=== PATIENT | female | born 1990 | race Caucasian/White ===

== ENCOUNTER 2018-03-09 10:35 | Inpatient (IN) | payer OTHER ==
[~2018-03-09] VITALS: Ht 157.5 cm; Wt 2.3 kg
[2018-03-16] MEDS ORDERED: PRENATAL PLUS1 EAC2 PO (07:27)
== END 2018-03-19 13:58 | DRG 766 ==
LOC: O/R 03-16 07:02 → SURG-SUITE 03-16 07:02 → SURH 03-16 07:15 → OB/GYN 03-16 14:10 → SURH 03-16 15:30 → SURG-SUITE 03-16 17:24
PROVIDERS: Obstetrics & Gynecology
PROC: 4A033R1 Measurement of Arterial Saturation, Peripheral, Percutaneous Approach (ICD-10-PCS; 2018-03-16)
PROC: 4A1HXCZ Monitoring of Products of Conception, Cardiac Rate, External Approach (ICD-10-PCS; 2018-03-16)
PROC: 10D00Z1 Extraction of Products of Conception, Low, Open Approach (ICD-10-PCS; principal; 2018-03-16 15:30)
DX: O82 Encounter for cesarean delivery without indication (principal); Z3A.39 39 weeks gestation of pregnancy; Z37.0 Single live birth; Z22.330 Carrier of Group B streptococcus